=== PATIENT | male | born 1980 | race Caucasian/White ===

== ENCOUNTER 2017-12-06 20:30 | Emergency (ER) | payer SELFPAY ==
[2017-12-06 22:13] LABS: ABS Basophils 0.1 10^3/ul (0-0.2); ABS Eosinophils 0 10^3/ul (0-0.6); ABS Lymphocytes 1.1 10^3/ul (1.0-4.8); ABS Monocytes 0.8 10^3/ul (0-0.8); ABS Neutrophils 9.6 10^3/ul (1.5-7.7); ABS Nucleated RBC 0 10^3/ul; Eosinophil % 0.1 % (0-6); Hematocrit 47 % (42-52); Hemoglobin 16.7 g/dl (14.0-18.0); Lymphocyte % 9.7 % (25-47); Mean Corpuscular HGB Conc 35 g/dl (31-36); Mean Corpuscular Hemoglobin 35 pg (27-31); Mean Corpuscular Volume 100 fL (80-94); Mean Platelet Volume 7.8 um3 (7.4-10.4); Nucleated Red Blood Cells % 0.1; Platelet Count 255 10^3/ul (150-450); Red Blood Count 4.72 10^6/ul (4.00-5.40); Red Cell Distribution Width 15 % (10.5-15); White Blood Count 11.7 10^3/ul (3.5-10.8)
--- NOTE | 2017-12-06 22:20 | ED ---
Substance Abuse/Use - HPI Summary HPI Summary: This patient is a 37 year old M presenting to [facility] accompanied by family with a chief complaint of ETOH abuse that began 10 weeks ago. The patient rates the pain 0/10 in severity. Symptoms aggravated by nothing. Symptoms alleviated by nothing. Patient reports sharp abd pain (when not drinking), jaundiced eyes, and nausea. Pt reports he has been drinking heavily for the last 10 weeks, and he wishes to stop. Pt reports his last drink being at approximately 1000 today. - History Of Current Complaint Chief Complaint: EDDetoxRequest Stated Complaint: POSS JAUNDICE/ALCOHOL DETOX Time Seen by Provider: 12/06/17 22:12 Hx Obtained From: Patient Onset/Duration of Drug/ETOH Abuse: Weeks Ingestion History: Type/Name Of Drug - ETOH Overdose Characteristics: Oral Timing Of Abuse: Daily Severity Initially: Mild Severity Currently: Mild Aggravating Factor(s): Nothing Alleviating Factor(s): Nothing Associated Signs And Symptoms: Other: - Positive sharp abd pain (when not drinking), jaundiced eyes, and nausea. - Allergies/Home Medications Allergies/Adverse Reactions: Allergies Allergy/AdvReac Type Severity Reaction Status Date / Time No Known Allergies Allergy Verified 12/06/17 20:38 PMH/Surg Hx/FS Hx/Imm Hx Previously Healthy: No Cardiovascular History: Reports: Hx Supraventricular Ventricular Tachycardia Opthamlomology History: Denies: Hx Legally Blind EENT History: Denies: Hx Deafness - Surgical History Hx Anesthesia Reactions: No Infectious Disease History: No Infectious Disease History: Denies: Traveled Outside the [place] in Last 30 Days - Family History Known Family History: Positive: Diabetes Negative: Cardiac Disease - Social History Occupation: Employed Full-time Lives: Alone Alcohol Use: Daily Hx Substance Use: Yes Substance Use Type: Reports: Marijuana Hx Tobacco Use: Yes Smoking Status (MU): Unknown if Ever Smoked Review of Systems Positive: Other - Positive jaundiced Positive: Abdominal Pain, Nausea All Other Systems Reviewed And Are Negative: Yes Physical Exam - Summary Physical Exam Summary: Appearance: Well-appearing, Well-nourished, lying in bed comfortably Skin: Warm, dry, no obvious rash Eyes: no conjunctival pallor, mild jaundice in the sclera ENT: mucous membranes moist, pharynx appears normal Neck: Supple, nontender Respiratory: Clear to auscultation, no signs of respiratory distress Cardiovascular: Normal S1, S2. No murmurs. Normal distal pulses in tibial and radial bilaterally. Abdomen: Soft, normal active bowel sounds present, minor hepatomegaly with the liver edge about 3 cm below the costal margin. Musculoskeletal: Normal, Strength/ROM Intact Neurological: A&Ox3, awake and alert, mentation is normal, speech is fluent and appropriate Psychiatric: affect is normal, does not appear anxious or depressed Triage Information Reviewed: Yes Vital Signs On Initial Exam: Initial Vitals Temp Pulse Resp BP Pulse Ox 98.4 F 92 20 164/103 98 12/06/17 20:34 12/06/17 20:34 12/06/17 20:34 12/06/17 20:34 12/06/17 20:34 Vital Signs Reviewed: Yes Diagnostics - Vital Signs Vital Signs Temp Pulse Resp BP Pulse Ox 12/06/17 20:34 98.4 F 92 20 164/103 98 - Laboratory Lab Results: Lab Results 12/06/17 Range/Units 22:06 WBC 11.7 H (3.5-10.8) 10^3/ul RBC 4.72 (4.00-5.40) 10^6/ul Hgb 16.7 (14.0-18.0) g/dl Hct 47 (42-52) % MCV 100 H (80-94) fL MCH 35 H (27-31) pg MCHC 35 (31-36) g/dl RDW 15 (10.5-15) % Plt Count 255 (150-450) 10^3/ul MPV 7.8 (7.4-10.4) um3 Neut % (Auto) 82.5 (38-83) % Lymph % (Auto) 9.7 L (25-47) % [place] % (Auto) 6.5 (0-7) % Eos % (Auto) 0.1 (0-6) % Baso % (Auto) 1.2 (0-2) % Absolute Neuts (auto) 9.6 H (1.5-7.7) 10^3/ul Absolute Lymphs (auto) 1.1 (1.0-4.8) 10^3/ul Absolute Monos (auto) 0.8 (0-0.8) 10^3/ul Absolute Eos (auto) 0 (0-0.6) 10^3/ul Absolute Basos (auto) 0.1 (0-0.2) 10^3/ul Absolute Nucleated RBC 0 10^3/ul Nucleated RBC % 0.1 Result Diagrams: 12/06/17 22:06 12/06/17 22:43 Lab Statement: Any lab studies that have been ordered have been reviewed, and results considered in the medical decision making process. Course/Dx - Diagnoses Provider Diagnoses: Alcoholic hepatitis without ascites - Physician Notifications Discussed Care Of Patient With: Manan Talavera Time Discussed With Above Provider: 23:00 Instructed by Provider To: Other - Consult with Dr. Talavera (hospitalist) at 2300. He communicated that this patient is not eligible for admission. Discharge - Sign-Out/Discharge Documenting (check all that apply): Patient Departure - Discharge Plan Condition: Good Disposition: HOME Prescriptions: chlordiazePOXIDE CAP* [Librium CAP*] 25 mg PO BID PRN #12 cap MDD 100 mg PRN Reason: Withdrawal - Alcohol Patient Education Materials: Alcoholic Hepatitis (ED) Referrals: No Primary Care Phys,NOPCP [Primary Care Provider] - - Billing Disposition and Condition Condition: GOOD Disposition: Home - Attestation Statements Document Initiated by Scribe: Yes Documenting Scribe: Lucrecia Dobbins Provider For Whom Scribe is Documenting (Include Credential): Porfirio Ruiz MD Scribe Attestation: Lucrecia Taylor, scribed for Porfirio Ruiz MD on 12/07/17 at 0421. Scribe Documentation Reviewed: Yes Provider Attestation: The documentation as recorded by the Lucrecia chau accurately reflects the service I personally performed and the decisions made by me, Porfirio Ruiz MD
[2017-12-06 22:35] LABS: EGFR Non-African American 63.4 (>60)
[2017-12-06 23:34] VITALS: BP 153/113
== END 2017-12-06 23:28 | disposition home or self-care (01) ==
LOC: ED 20:30
DX: K70.10 Alcoholic hepatitis without ascites (principal)
CPT/HCPCS: 36415; 80053; 80320; 80329; 84443; 85025; 99282; G0480